=== PATIENT | female | born 1960 ===

== ENCOUNTER 2023-05-01 17:25 | Emergency (ER) | payer BC, MEDICAID ==
[~2023-05-01] VITALS: Ht 157.5 cm; Wt 77.0 kg
[2023-05-01 18:32] LABS: Basophils # (auto) 0.1 10 ^3/uL (0-0.2); Eosinophils # (auto) 0.2 10 ^3/uL (0-0.8); Lymphocytes % (auto) 12.6 % (10.0-50.0); Mean Corpuscular Volume 80.2 fL (80.0-100.0); Monocytes # (auto) 0.5 10 ^3/uL (0-1.3)
[2023-05-01 18:33] LABS: Basophils % (auto) 0.8 % (0.0-2.0); Eosinophils % (auto) 1.6 % (0.0-7.0); Hematocrit 36.1 % (36.0-46.0); Hemoglobin 12.1 g/dL (12.2-16.2); Lymphocytes # (auto) 1.4 10 ^3/uL (0.4-5.4); Mean Corpuscular Hemoglobin 26.9 pg (28.0-32.0); Mean Corpuscular Hgb Conc. 33.6 g/dL (32.0-36.0); Monocytes % (auto) 3.9 % (0.0-12.0); Neutrophils # (auto) 9.3 10 ^3/uL (1.6-8.6); Neutrophils % (auto) 81.1 % (37.0-80.0); Red Cell Distribution Width 14.1 % (11.8-14.3); White Blood Cell 11.5 10^3/uL (4.4-10.8)
[2023-05-01 18:36] VITALS: PULSE 95; RESP 21; O2SAT 99
[2023-05-01] MEDS ORDERED: IOHEXOL 350 MG/ML 100ML IJ ONE (18:51)
[2023-05-01 18:52] LABS: INR 1.04 (0.9-1.15); Prothrombin Time 10.9 sec (9.3-11.8)
[2023-05-01] MEDS ORDERED: ASPirin 81 mg TAB PO ONE (20:00)
[2023-05-01 20:14] LABS: Urine Bacteria NONE SEEN /hpf (None Seen); Urine Blood Negative /uL (Negative); Urine Clarity Clear (Clear); Urine Color Colorless (Yellow); Urine Protein, UAD Negative (Negative); Urine Specific Gravity 1.014 (1.001-1.035); Urine Urobilinogen Normal (Negative); Urine WBC 3 /hpf (0 - 5)
[2023-05-01 20:26] LABS: Chloride 106 mmol/L (98-107); Sodium 140 mmol/L (136-145)
[2023-05-01 20:29] LABS: Anion Gap 8 (5-15); Carbon Dioxide 26 mmol/L (20-30)
[2023-05-01 20:30] LABS: Calcium 9.4 mg/dL (8.7-10.4)
[2023-05-01 20:34] LABS: Glucose 105 mg/dL (74-106)
[2023-05-01 20:35] LABS: Alkaline Phosphatase 114 U/L (46-116)
[2023-05-01 20:36] LABS: Albumin 4.7 g/dL (3.2-4.8); Aspartate Aminotransferase 15 U/L (13-40)
[2023-05-01 20:37] LABS: Bilirubin, Total 0.7 mg/dL (0.2-1.0); Total Protein 7.3 g/dL (5.7-8.2)
[2023-05-01 21:12] LABS: Alanine Aminotransferase 12 U/L (7-40); BUN/Creatinine Ratio 8.6 (10.0-20.0); Blood Urea Nitrogen 10 mg/dL (9-23); Potassium 3.9 mmol/L (3.5-5.1)
[2023-05-02 01:26] VITALS: BP 152/77; PULSE 83; RESP 12; TEMP 99.5; O2SAT 98
== END 2023-05-02 01:50 | disposition short-term general hospital (02) ==
LOC: EDBD 17:25 → ER 17:25
DX: I63.9 Cerebral infarction, unspecified (principal); Z88.2 Allergy status to sulfonamides; Z79.899 Other long term (current) drug therapy
CPT/HCPCS: 36415; 70450; 70496; 71045; 80053; 81001; 83735; 83880; 84484; 85025; 85610; 85730; 93005; 99285; Q9967

== ENCOUNTER 2023-07-20 11:50 | Emergency (ER) | payer BC, MEDICAID ==
[~2023-07-20] VITALS: Ht 167.6 cm; Wt 90.9 kg
[2023-07-20 13:52] LABS: Basophils # (auto) 0.1 10 ^3/uL (0-0.2); Eosinophils # (auto) 0.1 10 ^3/uL (0-0.8); Eosinophils % (auto) 1.9 % (0.0-7.0); Lymphocytes # (auto) 2.1 10 ^3/uL (0.4-5.4); Neutrophils # (auto) 4.7 10 ^3/uL (1.6-8.6); Red Blood Cells 4.55 10^6/uL (4.0-5.20); White Blood Cell 7.2 10^3/uL (4.4-10.8)
[2023-07-20 13:54] LABS: Lymphocytes % (auto) 29.1 % (10.0-50.0); Mean Corpuscular Hemoglobin 26.3 pg (28.0-32.0); Mean Corpuscular Hgb Conc. 32.4 g/dL (32.0-36.0); Mean Corpuscular Volume 81.4 fL (80.0-100.0); Monocytes # (auto) 0.2 10 ^3/uL (0-1.3); Monocytes % (auto) 3.1 % (0.0-12.0); Neutrophils % (auto) 64.9 % (37.0-80.0); Red Cell Distribution Width 13.5 % (11.8-14.3)
[2023-07-20 14:10] LABS: Alanine Aminotransferase 12 U/L (7-40); Albumin 4.6 g/dL (3.2-4.8); Alkaline Phosphatase 102 U/L (46-116); Anion Gap 6 (5-15); Aspartate Aminotransferase 17 U/L (13-40); Bilirubin, Total 0.6 mg/dL (0.2-1.0); Blood Urea Nitrogen 13 mg/dL (9-23); Calcium 9.4 mg/dL (8.7-10.4); Carbon Dioxide 29 mmol/L (20-30); Chloride 108 mmol/L (98-107); Glucose 96 mg/dL (74-106); Magnesium 2.1 mg/dL (1.6-2.6); Potassium 4.3 mmol/L (3.5-5.1); Sodium 143 mmol/L (136-145); Total Protein 6.8 g/dL (5.7-8.2)
[2023-07-20 18:32] VITALS: BP 141/58; TEMP 98
[2023-07-20] MEDS ORDERED: ACETAMINOPHEN 325 MG TAB PO ONE ×2 (18:39→18:45)
[2023-07-20 18:43] VITALS: PULSE 69; RESP 16; O2SAT 95
[2023-07-20] MEDS ORDERED: LAM100T PO (20:10)
[2023-07-20] MEDS ORDERED: OMEP20TA PO (20:10)
[2023-07-20] MEDS ORDERED: CLOP75TA28 PO (20:10)
[2023-07-20] MEDS ORDERED: TRAM50TA2 PO (20:10)
[2023-07-20] MEDS ORDERED: ISOS10TA5 PO (20:10)
[2023-07-20] MEDS ORDERED: LOVA40TA72 PO (20:10)
[2023-07-20] MEDS ORDERED: LISI20TA56 PO (20:10)
[2023-07-20] MEDS ORDERED: AML5T PO (20:10)
[2023-07-20] MEDS ORDERED: HYDR-3682 PO (20:10)
[2023-07-20] MEDS ORDERED: ATEN50TA PO (20:10)
== END 2023-07-20 20:21 | disposition home or self-care (01) ==
LOC: ER 11:50
DX: G45.9 Transient cerebral ischemic attack, unspecified (principal); R51.9 Headache, unspecified; I10 Essential (primary) hypertension
CPT/HCPCS: 36415; 70450; 80053; 82542; 83735; 84484; 85025; 93005

== ENCOUNTER 2024-05-04 14:03 | Emergency (ER) | payer BC, MEDICAID ==
[~2024-05-04] VITALS: Ht 167.6 cm; Wt 92.1 kg
[~2024-05-04 14:03] MED LIST: AML5T PO; ATEN50TA PO; CLOP75TA28 PO; HYDR-3682 PO; ISOS10TA5 PO; LAM100T PO; LISI20TA56 PO; LOVA40TA72 PO; OMEP20TA PO; TRAM50TA2 PO
[2024-05-04 14:47] LABS: Eosinophils # (auto) 0.3 10 ^3/uL (0-0.8); Monocytes # (auto) 0.5 10 ^3/uL (0-1.3); Monocytes % (auto) 5.6 % (0.0-12.0)
[2024-05-04 14:48] LABS: Basophils # (auto) 0.1 10 ^3/uL (0-0.2); Basophils % (auto) 0.8 % (0.0-2.0); Eosinophils % (auto) 3.1 % (0.0-7.0); Hematocrit 38.8 % (36.0-46.0); Lymphocytes # (auto) 3.1 10 ^3/uL (0.4-5.4); Lymphocytes % (auto) 38.1 % (10.0-50.0); Mean Corpuscular Hemoglobin 26.3 pg (28.0-32.0); Mean Corpuscular Hgb Conc. 33.4 g/dL (32.0-36.0); Mean Corpuscular Volume 78.7 fL (80.0-100.0); Neutrophils # (auto) 4.3 10 ^3/uL (1.6-8.6); Neutrophils % (auto) 52.4 % (37.0-80.0); Platelet Count (auto) 281 10^3/uL (140-450); Red Blood Cells 4.93 10^6/uL (4.0-5.20); Red Cell Distribution Width 13.6 % (11.8-14.3); White Blood Cell 8.3 10^3/uL (4.4-10.8)
[2024-05-04 14:55] LABS: Chloride 106 mmol/L (98-107); Potassium 3.8 mmol/L (3.5-5.1); Sodium 142 mmol/L (136-145)
[2024-05-04 14:56] LABS: Anion Gap 10 (5-15); Calcium 10.3 mg/dL (8.7-10.4); Carbon Dioxide 26 mmol/L (20-31)
[2024-05-04 15:01] LABS: BUN/Creatinine Ratio 15.6 (10.0-20.0); Blood Urea Nitrogen 17 mg/dL (9-23); Glucose 79 mg/dL (74-106)
[2024-05-04 15:27] LABS: Urine Bacteria None Seen /hpf (None Seen)
[2024-05-04 15:35] LABS: Urine Blood Negative /uL (Negative); Urine Clarity Clear (Clear); Urine Color Light-Yellow (Yellow); Urine Protein, UAD Negative (Negative); Urine Specific Gravity 1.016 (1.001-1.035); Urine Urobilinogen Normal (Negative); Urine WBC 2 /hpf (0 - 5)
[2024-05-04] MEDS ORDERED: LEVO500T91 PO (18:07)
[2024-05-04] MEDS: ASPirin 81 mg TAB PO ONE (18:44)
[2024-05-04 19:34] VITALS: BP 103/66; PULSE 70; RESP 16; O2SAT 98
== END 2024-05-04 19:36 | disposition home or self-care (01) ==
LOC: ER 14:03
DX: N39.0 Urinary tract infection, site not specified (principal); R53.1 Weakness; E78.5 Hyperlipidemia, unspecified; I10 Essential (primary) hypertension; R51.9 Headache, unspecified; Z79.899 Other long term (current) drug therapy; Z86.73 Personal history of transient ischemic attack (TIA), and cerebral infarction without residual deficits; Z88.2 Allergy status to sulfonamides; Z90.49 Acquired absence of other specified parts of digestive tract; Z95.5 Presence of coronary angioplasty implant and graft; Z98.51 Tubal ligation status
CPT/HCPCS: 36415; 70450; 80048; 81001; 82962; 85025